=== PATIENT | male | born 1985 | race Caucasian/White ===

== ENCOUNTER 2022-05-04 10:57 | Emergency (ER) | payer OTHER, SELFPAY ==
--- NOTE | ~2022-05-04 | CT_ITS ---
CT TEMPORAL BONES WITHOUT CONTRAST CLINICAL INFORMATION: Right ear pain and infection. Purulent discharge. COMPARISON: None available. TECHNIQUE: Multidetector CT acquisition of the temporal bones obtained without contrast. This CT examination was performed using dose optimization techniques as appropriate, variously including the following: *Automated exposure control *Adjustment of mA and/or kV according to patient size (this includes techniques or standardized protocols for targeted exams where dose is matched to indication/reason for exam; i.e. extremities or head) *Use of iterative reconstruction technique FINDINGS: The mastoid air cells are clear bilaterally. There is soft tissue thickening along the periphery of the right bony external auditory canal and there is soft tissue inseparable from the external auditory canal and mesial tympanic surface of the right tympanic membrane that should be correlated with direct visual inspection. The remainder of the right middle ear cavity is clear. There is no bony erosion. No drainable soft tissue fluid collections. Inner ear structures including the cochlea, vestibules, and semicircular canals are normal. The vestibular aqueducts are not enlarged. Sigmoid plates are intact. Internal carotid arteries remain will cover with bone. Facial nerve describes a normal course. The TMJs are unremarkable. There is mild mucosal thickening within the imaged paranasal sinuses. There is leftward deviation of the nasal septum with a leftward directed septal spur. CT/CT mastoid IMPRESSION: There is soft tissue thickening along the periphery of the right bony external auditory canal and there is soft tissue inseparable from the external auditory canal and mesial tympanic surface of the right tympanic membrane that should be correlated with direct visual inspection, possibly the sequela of otitis externa/otitis media given the history. The remainder of the right middle ear cavity is clear. There is no bony erosion. No drainable soft tissue fluid collections. The mastoid air cells are clear bilaterally.
[2022-05-04 11:06] VITALS: BP 144/93; PULSE 65; RESP 16; O2SAT 97; BMI 24.2
--- NOTE | 2022-05-04 11:39 | ED.EAR ---
HPI - Ear Problem General Chief complaint: Ear Problems Stated complaint: ear pain Time Seen by Provider: 05/04/22 11:24 Source: patient Mode of arrival: ambulatory Limitations: no limitations History of Present Illness HPI Narrative: 36 yo male with history of seasonal allergies presents to the ER for evaluation of worsening right ear pain for the last 5 days. He was diagnosed with otitis media on Saturday and started on Augmentin, which he 1st took on Saturday. He reports since then the pain has been getting worse, now a 9/10 from a 6/10 earlier in the week. He states the pain is now located behind his ear and he has a pounding headache. He has been taking Motrin. His is an [employer] WORK[employer] who looked in his canal - he has new purulence and swelling of the canal that was not present earlier in the week. He is not diabetic and he does not have chronic ear infections. He was sent to the ER to r/o mastoiditis from an urgent care clinic. MD Complaint: ear pain and decreased hearing Location: right ear Duration: constant Severity: severe Relieving factors: NDAIDs Exacerbating factors: position of head and palpation Discharge from ear: no Associated symptoms ear: decreased hearing, headache and external ear tenderness Treatment prior to arrival: oral analgesic Related Data Previous Rx's Medication Instructions Recorded ciprofloxacin 0.3 %-dexamethasone 4 drp otic (ears) BID 7 days #7.5 05/04/22 0.1 % ear drops,suspension mL (Ciprodex) levofloxacin 750 mg tablet 750 mg PO DAILY #10 tabs 05/04/22 Allergies Allergy/AdvReac Type Severity Reaction Status Date / Time SEASONAL ALLERGIES Allergy Mild HEADACHES Uncoded 04/14/20 19:50 Review of Systems Review of Systems: Constitutional: No Fever, No Chills ENT/Mouth: No sore throat, No Rhinorrhea, No Swallowing Difficulty, +Otalgia, +hearing loss Eyes: No Eye Pain, No Swelling, No Redness Cardiovascular: No Chest Pain, No SOB Respiratory: No Cough, No Sputum Gastrointestinal: No Nausea, No Vomiting,No abdominal [place] Musculoskeletal: No joint pain, No Myalgias Skin: No Skin Lesions, No rash Neuro: No Weakness, No Numbness, No Dizziness,+ Headache Heme/Lymph: No Bruising, + Lymphadenopathy PMFSH Social History Social History Advance Directives: No Advance Directives Information Provided: No Physical Exam Vital Signs: Vital Signs: Last Vital Signs Pulse 65 05/04/22 11:06 Resp 16 05/04/22 11:06 BP 144/93 H 05/04/22 11:06 Pulse Ox 97 05/04/22 11:06 O2 Del Method 05/04/22 11:06 BMI result Body Mass Index 24.2 Appearance: Alert. Oriented X3. No acute distress. HEENT: right ear with ecternal tenderness to pinna and postauricually at the mastoid without overlying erythema or warmth. right EAC with diffuse purulent drainage and some mild swelling. TM with pus behind the drum. tender throughout. left EAC and TM are normal. no apprecaited LAD CVS: Normal heart rate and rhythm. Pulses normal. Respiratory: No respiratory distress. Skin: Skin warm and dry. Normal skin color. Normal skin turgor. No rashes. Extremities: normal inspection x4, normal ROM Neuro: Oriented X 3. No motor deficit. No sensory deficit. Steady gait Course Course Course Narrative: 36 yo male presenting with right ear pain and mastoid tenderness while on Augmentin for the last 3 days. He has otitis media and otitis externa. Not improving with PCN so will broaden to levofloxacin and topical ciprodex, no visible TM perforation. Doubt mastoiditis but will get CT scan to rule this out. Reevaluation(s) Reevaluation #1: CT There is soft tissue thickening along the periphery of the right bony external auditory canal and there is soft tissue inseparable from the external auditory canal and mesial tympanic surface of the right tympanic membrane that should be correlated with direct visual inspection, possibly the sequela of otitis externa/otitis media given the history. The remainder of the right middle ear cavity is clear. There is no bony erosion. No drainable soft tissue fluid collections. The mastoid air cells are clear bilaterally. Will d/c on levaquin and topical ciprodex. stable for d/c home. MDM - Ear Lab Data Result diagrams: 05/04/22 11:45 05/04/22 Unknown Labs: Lab Results 05/04/22 Range/Units 11:45 WBC 5.4 (4.8-10.8) X10*3/uL RBC 4.81 (4.60-5.80) X10*6/uL Hgb 15.3 (14.0-18.0) g/dl Hct 43.2 (42.0-52.0) % MCV 89.8 (80.0-98.0) fL MCH 31.8 (27.0-33.0) pg MCHC 35.4 (31.0-36.0) g/dl RDW 11.7 (11.0-16.0) % Plt Count 192 (160-400) X10*3/uL MPV 10.2 (9.4-12.4) fL Immature Gran % (Auto) 0.2 (0.0-0.4) % Neut % (Auto) 64.2 (45-73) % Lymph % (Auto) 24.1 (20-40) % [place] % (Auto) 10.0 (2-11) % Eos % (Auto) 0.9 (0-4) % Baso % (Auto) 0.6 (0-2) % Lymph # (Auto) 1.3 (1.2-4.9) X10*3/uL [place] # (Auto) 0.5 (0.1-1.2) X10*3/uL Eos # (Auto) 0.1 (0.0-0.4) X10*3/uL Baso # (Auto) 0.0 (0.0-0.2) X10*3/uL Abs Immat Gran (auto) 0.01 (0.00-0.03) X10*3/uL Absolute Neuts (auto) 3.5 (2.0-8.3) x10*3/uL Absolute Nucleated RBC 0.000 (0.0-0.012) X10*3/uL Nucleated RBC % (auto) 0.0 (0.0-0.2) /100WBC Discharge Plan Discharge Clinical Impression: Otitis externa, Otitis media Patient Disposition: Home, Self-Care Instructions: Otitis Externa (ED), Ear Infection (ED) Additional Instructions: CT scan showed :There is soft tissue thickening along the periphery of the right bony external auditory canal and there is soft tissue inseparable from the external auditory canal and mesial tympanic surface of the right tympanic membrane that should be correlated with direct visual inspection, possibly the sequela of otitis externa/otitis media given the history. The remainder of the right middle ear cavity is clear. There is no bony erosion. No drainable soft tissue fluid collections. The mastoid air cells are clear bilaterally. Take the prescribed oral Levaquin starting tomorrow, you were given 1st dose today in the ER. Start the drops today and take as directed. Take motrin and tylenol for pain. Follow up with your provider. Recommend follow up with ENT if no improvement or recurrance. If you develop new or worsening symptoms call 911 or come back to the ER for further evaluation. Prescriptions: New ciprofloxacin-dexamethasone [Ciprodex] 0.3-0.1 % drops,suspension 4 drp otic (ears) BID 7 Days Qty: 7.5 0RF levofloxacin 750 mg tablet 750 mg PO DAILY Qty: 10 0RF Referrals: Saad Esposito [Physician] - Stand Alone Forms: Work/School Release
[2022-05-04 11:52] LABS: MANUAL DIFF FLAG NO
[2022-05-04 11:59] LABS: Basophils Percent Auto 0.6 % (0-2); Eosinophils Absolute Auto 0.1 X10*3/uL (0.0-0.4); Eosinophils Percent Auto 0.9 % (0-4); Hematocrit 43.2 % (42.0-52.0); Hemoglobin 15.3 g/dl (14.0-18.0); Imm Gran Abs Auto 0.01 X10*3/uL (0.00-0.03); Imm Gran Pct Auto 0.2 % (0.0-0.4); Lymphocytes Absolute Auto 1.3 X10*3/uL (1.2-4.9); Lymphocytes Percent Auto 24.1 % (20-40); Mean Corpuscular HGB Conc 35.4 g/dl (31.0-36.0); Mean Corpuscular Hemoglobin 31.8 pg (27.0-33.0); Mean Corpuscular Volume 89.8 fL (80.0-98.0); Mean Platelet Volume 10.2 fL (9.4-12.4); Monocytes Absolute Auto 0.5 X10*3/uL (0.1-1.2); Neutrophils Absolute Auto 3.5 x10*3/uL (2.0-8.3); Neutrophils Percent Auto 64.2 % (45-73); Platelet Count 192 X10*3/uL (160-400); Red Blood Count 4.81 X10*6/uL (4.60-5.80); Red Cell Distribution Width 11.7 % (11.0-16.0); White Blood Count 5.4 X10*3/uL (4.8-10.8)
[2022-05-04] MEDS: Ibuprofen 600 MG TABLET PO (12:10)
[2022-05-04] MEDS: levoFLOXacin 750 MG TABLET PO (12:10)
== END 2022-05-04 13:53 | disposition home or self-care (01) ==
PROVIDERS: Physician Assistant; Emergency Provider Emergency Medicine Emergency Medical Services
DX: H60.91 Unspecified otitis externa, right ear (principal); H66.91 Otitis media, unspecified, right ear; H92.01 Otalgia, right ear; Z79.899 Other long term (current) drug therapy
CPT/HCPCS: 36415; 70481; 80048; 85025; 99283; 99284

== ENCOUNTER 2022-05-15 13:50 | Outpatient (REF) | payer OTHER, SELFPAY | END 2022-05-15 13:51 | disposition home or self-care (01) | LOC: HO.LNP 13:50 | PROVIDERS: Visit Provider Otolaryngology | DX: B99.9 Unspecified infectious disease (principal) | CPT/HCPCS: 87070; 87102; 87107; 87205 ==